=== PATIENT | female | born 1990 | race Caucasian/White ===

== ENCOUNTER 2017-05-16 16:37 | Emergency (ER) | payer BC ==
[~2017-05-16] VITALS: Ht 160 cm; Wt 104.5 kg
[~2017-05-16 16:37] MED LIST: DEPO-PROVER150 MG/M1 IM; DOXYCYCLINE 10100 MG PO
[2017-05-16 16:45] VITALS: TEMP 97.5
[2017-05-16 16:58] LABS: COLLECTION METHOD CLEAN CATCH
[2017-05-16 17:04] LABS: BASO % 0.3 % (0.0-2.0); EOS % 0.2 % (0-4.0); GRAN # 9.1 (1.4-6.5); GRAN % 79.8 % (42.2-75.2); HEMATOCRIT 43.1 % (37.0-47.0); HEMOGLOBIN 14.5 g/dl (12.5-16.0); LYMPH # 1.5 (1.2-3.4); LYMPH % 13.4 % (20.0-51.0); MEAN CELL VOLUME 87 fl (80.0-100.0); MEAN CORPUSCULAR HEMOGLOBIN 29 pg (27.0-31.0); MEAN CORPUSCULAR HGB CONC 34 g/dl (33.0-37.0); MEAN PLATELET VOLUME 11.4 fl (7.4-10.4); MONO # 0.7 (0.1-0.6); MONO % 5.9 % (1.7-9.3); PLATELET COUNT 229 K/mm3 (130-400); RED BLOOD COUNT 4.97 M/mm3 (4.10-5.30); REDCELL DISTRIBUTION WIDTH-CV 13.5 % (11.5-14.5)
[2017-05-16 17:09] LABS: MUCOUS Present /lpf; PH 6 (5-8); URINE APPEARANCE Hazy; URINE BACTERIA None Seen /hpf; URINE BILIRUBIN Negative (NEGATIVE); URINE BLOOD Negative (NEGATIVE); URINE COLOR Yellow; URINE GLUCOSE Negative (NEGATIVE); URINE KETONE 2+ (NEGATIVE); URINE LEUKOCYTE ESTERASE Negative (NEGATIVE); URINE NITRATE Negative (NEGATIVE); URINE PROTEIN(semi-quant) Negative (NEGATIVE); URINE UROBILINOGEN Negative (NEGATIVE)
[2017-05-16 17:26] LABS: ALBUMIN 4.1 gm/dL (3.5-5.0); BILIRUBIN,TOTAL 0.6 mg/dL (0.0-1.0); C-REACTIVE PROTEIN 1.2 mg/dL (0.0-0.9); CALCIUM 9.8 mg/dL (8.4-10.2); CREATININE, serum 0.91 mg/dL (0.52-1.25); POTASSIUM 3.6 mmol/L (3.4-5.0); TOTAL PROTEIN 8.1 gm/dL (6.4-8.2)
[2017-05-16] MEDS ORDERED: ZOFRAN ODT4 MG PO (19:16)
[2017-05-16] MEDS ORDERED: NORCO 325 MG-51 TAB PO (19:16)
[2017-05-16 20:01] VITALS: BP 122/84; PULSE 76
== END 2017-05-16 20:03 | disposition home or self-care (01) ==
LOC: COL.ER 16:37
PROVIDERS: Emergency Medicine
DX: N20.1 Calculus of ureter (principal); N20.0 Calculus of kidney; F17.210 Nicotine dependence, cigarettes, uncomplicated
CPT/HCPCS: J1885; J2270; J2405; J3010; J7030; Q9967

== ENCOUNTER 2020-07-23 22:50 | Observation (INO) | payer BC ==
[~2020-07-23] VITALS: Ht 160 cm; Wt 113.6 kg
[~2020-07-23 22:50] MED LIST changes: +NORCO 325 MG-51 TAB PO; +ZOFRAN ODT4 MG PO
[2020-07-23 23:56] LABS: BASO # 0.1 (0.0-0.2); BASO % 0.6 % (0.0-2.0); EOS # 0.1 (0.0-0.7); EOS % 0.6 % (0-4.0); GRAN # 6.2 (1.4-6.5); GRAN % 58.6 % (42.2-75.2); HEMATOCRIT 42.4 % (37.0-47.0); HEMOGLOBIN 13.9 g/dl (12.5-16.0); LYMPH # 3.3 (1.2-3.4); LYMPH % 31.8 % (20.0-51.0); MEAN CELL VOLUME 88 fl (80.0-100.0); MEAN CORPUSCULAR HEMOGLOBIN 29 pg (27.0-31.0); MEAN CORPUSCULAR HGB CONC 33 g/dl (33.0-37.0); MONO # 0.8 (0.1-0.6); PLATELET COUNT 262 K/mm3 (130-400); REDCELL DISTRIBUTION WIDTH-CV 13.6 % (11.5-14.5)
[2020-07-24 00:06] LABS: ALANINE AMINOTRANSFERASE 25 U/L (4-34); ALBUMIN 4.1 gm/dL (3.5-5.0); ALKALINE PHOSPHATASE 83 U/L (50-136); ANION GAP 8 mmol/L (7-16); AST,SGOT 27 U/L (15-37); BILIRUBIN,TOTAL 0.2 mg/dL (0.0-1.0); BLOOD UREA NITROGEN 9 mg/dL (7-17); CALCIUM 9.6 mg/dL (8.4-10.2); CARBON DIOXIDE 24 mmol/L (22-30); CHLORIDE 107 mmol/L (98-107); CREATININE, serum 0.83 (0.52-1.25); GLUCOSE 88 mg/dL (74-106); POTASSIUM 3.7 mmol/L (3.4-5.0); SODIUM 139 mmol/L (137-145); TOTAL PROTEIN 8.1 gm/dL (6.4-8.2)
[2020-07-24 00:18] LABS: TROPONIN-I < 0.012 ng/mL (0.000-0.035)
[2020-07-24 03:45] VITALS: BP 131/67; PULSE 68; TEMP 97.9
--- NOTE | 2020-07-24 04:09 | NUR ---
PATIENT ARRIVED TO UNIT FROM ED AROUND 0345. ALERT AND ORIENTED X4. INDEPENDENT WITH STEADY GAIT. VITAL SIGN STABLE. PATIENT ORIENTED TO ROOM. CALL LIGHT WITHIN REACH, BED IN LOW POSITION AND LOCKED. WILL CONTINUE TO MONITOR.
[2020-07-24 04:14] VITALS: BP 131/67; PULSE 68; TEMP 97.9
--- NOTE | 2020-07-24 06:30 | NUR ---
Pt resting with eyes closed, even non labored breathing
[2020-07-24 08:57] VITALS: BP 135/65; PULSE 83; TEMP 98.6
--- NOTE | 2020-07-24 09:00 | NUR ---
Pt emotional during assessment. Stated that she does not like hospitals. Informed her that so far all her tests have been negative. Explained to her the medications that I have to give and their purpose. Pt asked about getting something to eat. Informed her that as of now she cannot, but that I would follow up to see if she could get an order to eat
--- NOTE | 2020-07-24 10:55 | NUR ---
SW met with patient to complete intake. Patient states that she lives in [place] alone. Patient provides that her POC is her parents Cristian and Mari [phone]. Patient states that she does not utilize DME and is independent with ADL's. Patient states that her pharmacy is [facility], PCP does not have due to not going to see a doctor for any medical needs, and states that she is able to afford her medications. Patient states that she does not have a DPOA-HC and does not wish to appoint anyone at this time. Patient states that her plan is to go back to her home in [place] upon DC and had no questions or concerns with doing so. SW will continue to follow. Plan: Home
--- NOTE | 2020-07-24 11:00 | NUR ---
Physicians have rounded on patient. orders for discharge. Pt is happy with this as she was hoping to get to go home today. General diet entered and informed pt that she can order something to eat prior to leaving
[2020-07-24 12:44] VITALS: BP 122/83; PULSE 79; TEMP 98.5
--- NOTE | 2020-07-24 13:05 | NUR ---
Pt ready to go home. Reviewed discharge instructions with pt to include calling to make follow up appointments tomorrow. INT removed from left AC. Pt escorted out
== END 2020-07-24 13:06 | disposition home or self-care (01) ==
LOC: COL.ER 22:50 → SURG 07-24 01:26
PROVIDERS: Emergency Medicine; ADMIT Internal Medicine
DX: R51.9 Headache, unspecified (principal); R20.0 Anesthesia of skin; R59.0 Localized enlarged lymph nodes; F17.290 Nicotine dependence, other tobacco product, uncomplicated; Z79.52 Long term (current) use of systemic steroids; Z79.891 Long term (current) use of opiate analgesic; Z79.899 Other long term (current) drug therapy; Z80.41 Family history of malignant neoplasm of ovary
CPT/HCPCS: G0378; J1650; J1885; J7030; Q9967